=== PATIENT | female | born 2005 | race Two or more races ===

== ENCOUNTER 2025-06-23 20:08 | Emergency (ER) | payer MEDICAID, SELFPAY ==
[2025-06-23 20:09] VITALS: BMI 42.5
[2025-06-23 20:14] VITALS: BP 164/105; PULSE 111; RESP 20; TEMP 36.9; O2SAT 99
--- NOTE | 2025-06-23 20:15 | EKG_ITS ---
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
[2025-06-23 20:47] VITALS: BP 153/97
--- NOTE | 2025-06-23 20:48 | XR_ITS ---
Examination: PA chest single view Technique: Upright PA chest single view Date and time: May 24, 20252051 hrs. Indications: Chest pain today. Findings: Normal heart size. Lungs are clear. The osseous structures are intact Impression: No active disease
--- NOTE | 2025-06-23 20:49 | PD.EDCHEST ---
ED Chest Pain RME/HPI General Chief Complaint: Chest Pain Stated Complaint: ANXIETY ATTACK E2HSTSI Time Seen by Provider: 06/23/25 20:13 Source: patient, RN notes reviewed and old records reviewed Arrival date/time: 06/23/25 20:08 Mode of arrival: ambulatory Limitations: no limitations RME / HPI RME / HPI narrative: 19yof presents to ED for mid chest wall cramping/soreness that initiated tonight. Patient reports worsening pain with deep breath and movement. No fever, cough, shortness of breath, nausea/vomiting, dizziness or syncope reported. No medications or treatment since symptom onset. Related Data Previous Rx's ?Medication ?Instructions ?Recorded ibuprofen 600 mg tablet 600 mg PO Q6H PRN pain #20 tabs 06/23/25 methocarbamol 500 mg tablet 1,000 mg (2 x 500 mg) PO Q8H PRN 06/23/25 pain #30 tabs Allergies Allergy/AdvReac Type Severity Reaction Status Date / Time No Known Allergies Allergy Verified 06/23/25 20:11 Review of Systems Review of Systems Systems Reviewed: All systems reviewed, normal except as documented Constitutional Constitutional: Denies chills and Denies fever(s) ENT Ears, Nose, Mouth, and Throat: Denies dizziness and Denies nasal congestion Cardiovascular Cardiovascular: Reports chest pain, Denies dyspnea, Denies palpitations and Denies syncope Respiratory Respiratory: Denies cough, Denies dyspnea and Reports pain on inspiration Gastrointestinal Gastrointestinal: Denies nausea and Denies vomiting Neurologic Neurologic: Denies dizziness and Denies syncope Endocrine Endocrine: Denies palpitations Past Medical History Past Medical History GASTROINTESTINAL: Positive Obesity Surgical History OTHER SURGICAL HX: Denies past surgical history Social History SMOKING STATUS: Never smoker SUBSTANCE USE: does not use ALCOHOL: Never ED Exam General Limitations: Present no limitations General appearance: Present alert and in no apparent distress Head Head exam: Present atraumatic and normocephalic Eye Eye exam: Present normal appearance, PERRL and EOMI ENT ENT exam: Present normal exam and mucous membranes moist Neck Neck exam: Present normal inspection and full ROM Chest Chest inspection: Present symmetric chest wall rise and tenderness (Mid chest wall) Respiratory Respiratory exam: Present normal lung sounds bilaterally; Absent respiratory distress Cardiovascular Cardiovascular exam: Present normal rhythm and tachycardia (Mild) Extremities Exam Extremities exam: Present normal inspection and full ROM; Absent pedal edema Neurological Exam Neurological exam: Present alert and oriented X3 Psychiatric Psychiatric exam: Present normal affect and normal mood; Absent anxious Skin Skin exam: Present warm, dry, intact and normal color Course Quality Measures none Orders Category Date Time Status EKG (ED ONLY) *Do not use* NOW Care 06/23/25 20:15 Completed CXR [XR chest 1V] Stat Exams 06/23/25 20:48 Completed EKG (ED Only) Stat Exams 06/23/25 20:15 Draft CYCLObenzaPRINE [Flexeril] Med 06/23/25 20:48 Discontinued 5 mg PO X1 ONE Ibuprofen Tab [Motrin Tab] Med 06/23/25 20:48 Discontinued 600 mg PO X1 ONE Vital Signs Vital signs: Vital Signs Temperature 98.4 F 06/23/25 20:14 Pulse Rate 111 H 06/23/25 20:14 Respiratory Rate 20 06/23/25 20:14 Blood Pressure 164/105 H 06/23/25 20:14 Pulse Oximetry (%) 99 06/23/25 20:14 Oxygen Delivery Method Room Air 06/23/25 20:14 PROCEDURES: EKG Interpretation #1: Date of EK06/23/25 Rate: 106 Interpretation: Interpreted by me EKG Impression: Normal sinus rhythm, No acute ST-T changes, No ectopy, No ischemic changes, Normal QRS, Normal intervals and Normal axis Additional EKG comment: No stemi Chest Pain MDM Narrative MDM Narrative:: 19yof presents to ED for mid chest wall cramping/soreness that initiated tonight. Patient reports worsening pain with deep breath and movement. No fever, cough, shortness of breath, nausea/vomiting, dizziness or syncope reported. No medications or treatment since symptom onset. Suspect MSK etiology of chest wall pain. Pain is reproducible with movement, palpation and deep inspiration. Patient is well-appearing, vitals are stable. Recommended NSAID, ice application prn. Stable for discharge, RTED precautions given. Patient data External records reviewed:: None (No prior visits) Clinical information provided by:: patient Social determinants that could affect healthcare access:: none Patient has the following chronic illnesses:: Obesity How is presenting disease/condition affected by chronic disease/condition?: exacerbated by Evaluation data The following diagnostics were reviewed and interpreted by me:: radiology exam(s) and EKG tracing(s) Lab and/or radiology exams considered but not ordered:: Troponin: Do not suspect cardiac or pulmonary etiology Interpretation Summary: CXR: No acute process per my read Medications / Prescriptions Medications or Prescriptions considered but not ordered:: No antibiotics recommended at this time Medication administrations:: Medication Administration History Discontinued Medications Cyclobenzaprine HCl (Cyclobenzaprine 5 Mg Tablet) 5 mg PO X1 ONE Stop: 06/23/25 20:49 Last Admin: 06/23/25 21:10 Dose: 5 mg Documented By: CAMILA Ibuprofen (Ibuprofen Tab 600 Mg Tablet) 600 mg PO X1 ONE Stop: 06/23/25 20:49 Last Admin: 06/23/25 21:10 Dose: 600 mg Documented By: CAMILA Above medications administered in ED Consultations Consultation(s) initiated? (list below): No Diagnosis Chest Pain Differential Diagnosis: pneumothorax, atypical chest pain, st elevation myocardial infarction and costochondritis Most likely diagnosis given after review of the tests above:: Musculoskeletal chest pain Admission Indicated Admission indicated?: not indicated Admission Request Was there a request for admission?: No Disposition Plan Disposition Plan: Discharge Discharge Attestation Discharge Attestation: The patient and all family members were given an opportunity to ask questions and understood the discharge instructions. Discharge instructions specifically effects, indications for sooner follow up or return to the emergency department, and the expected course of current diagnosis. Patient condition: Stable Discharge Plan Plan Patient Disposition: HOME (Self Care) Patient condition on transfer: Stable Prescriptions/Referrals Prescriptions/Med Rec: New ibuprofen 600 mg tablet 600 mg PO Q6H PRN (Reason: pain) Qty: 20 0RF methocarbamol 500 mg tablet 1,000 mg PO Q8H PRN (Reason: pain) Qty: 30 0RF Referrals: Temporary Provider,ED [Physician, Emergency Medicine] - In 1 week Problem List Clinical Impression: Chest wall pain Patient/Caregiver Discharge Instructions Education Materials: ED Chest Wall Pain, Costochondritis Print Language: Zimbabwean Stand Alone Forms: Nallely Award Info., Patient Portal Info Letter PA/DWIGHT Supervising Physician SHARYN/DWIGHT Supervising Physician: Anabella
[2025-06-23] MEDS: IBUPROFEN TAB 600 MG TABLET PO (21:10)
[2025-06-23 21:47] VITALS: BP 134/84; PULSE 95; O2SAT 99
== END 2025-06-23 21:48 | disposition home or self-care (01) ==
PROVIDERS: Emergency Provider Emergency Medicine; PCP Family Medicine
DX: R07.89 Other chest pain (principal)
CPT/HCPCS: 71045; 93005; 99283; A9270